=== PATIENT | female | born 1965 | race Two or more races ===

== ENCOUNTER 2025-02-20 14:22 | Observation (INO) ==
--- NOTE | 2025-02-20 14:22 | ED Physician Documentation ---
PD HPI FOCAL NEURO Stated complaint Stated Complaint: SLURRED SPEECH Chief complaint Chief Complaint: Neuro History obtained from History obtained from: Patient and EMS History of Present Illness Timing - onset: How many hours ago (Onset of notable weakness and trouble speaking at 130 today, approximately 1 hour prior to arrival. Some numbness in the right arm starting 10:00 this morning.) and Today Timing - details: Abrupt onset, Still present and Waxing and waning Weakness: Face, Arm, Leg and Right Numbness: Arm, Leg and Right Associated symptoms: Headache; No Nausea / vomiting, Seizure, Head injury or Fever Baseline status: positive A&OX3, ambulatory, indep (With some baseline weakness of the right arm and leg and very subtly on the face from a stroke 4 to 5 years ago.) Similar symptoms before: Diagnosis (CVA 4-5 years ago.) Recently seen: Not recently seen Meds/Allgy Home Medications Ambulatory Orders Medication Instructions Recorded Confirmed aspirin 81 mg capsule 81 mg PO DAILY 02/20/2502/09 atorvastatin 80 mg tablet (Lipitor) 80 mg PO DAILY 04/0402/20/25 gabapentin 100 mg capsule 100 mg PO BID 02/20/2502/20 losartan 50 mg tablet (Cozaar) 50 mg PO BID 02/20/25 1 04/22/24 metoprolol tartrate 50 mg tablet 50 mg PO BID 02/20/25 02/20/25 (Lopressor) potassium 02/20/25 Allergies Allergies Allergy/AdvReac Type Severity Reaction Status Date / Time No Known Drug Allergies Allergy Verified 02/20/25 14:53 PFSH Active Problems All Active Problems (Updated 02/20/25 @ 16:21 by Paolo Ibarra MD) Acute right-sided weakness (Acute) CVA (cerebral vascular accident) (Acute) Social History Social History Smoking Status: Unknown if ever smoked Do you feel safe in your home environment?: Yes History of physical, verbal, emotional, or financial abuse?: No Exam Exam Vital Signs: Vital Signs x48h Temp Pulse Resp BP Pulse Ox 02/20/25 15:43 61 20 151/65 H 98 02/20/25 15:37 58 L 17 139/65 H 98 02/20/25 15:11 68 27 H 167/77 H 100 02/20/25 14:16 36.7 C 71 18 155/98 H 92 Constitutional normal general appearance, distress noted (moderate) (anxious) and average body habitus HENMT head/scalp atraumatic Neck/C-Spine visual inspection normal, supple, no meningeal signs and no carotid bruits Lymph no lymphadenopathy noted Chest palpation of chest normal Respiratory normal respiratory effort and clear to auscultation bilaterally Cardiovascular normal heart rate noted, regular rhythm noted and no edema Gastrointestinal abdomen soft to palpation and nontender to palpation Extremities normal to palpation and no tenderness Neurology cranial nerve findings as noted: (mild right facial weakness) and no focal motor deficit noted Results Vitals Vitals: Vital Signs - 24 hr 02/20/25 14:16 02/20/25 15:11 02/20/25 15:37 Temperature 36.7 C Temperature Source Temporal Artery Scan Pulse Rate 71 68 58 L Respiratory Rate 18 27 H 17 Blood Pressure 155/98 H 167/77 H 139/65 H O2 Saturation 92 100 98 O2 Source Room air Room air Room air Pain Intensity 0 6 02/20/25 15:43 Temperature Temperature Source Pulse Rate 61 Respiratory Rate 20 Blood Pressure 151/65 H O2 Saturation 98 O2 Source Pain Intensity Oxygen O2 Source Room air EKG (time done) 1438: EKG releavant findings:: EKG personally interpreted by author of this note. Relevant findings are: Rate: Rate (enter#) (64) Rhythm: NSR [place]: Normal Intervals: Normal RI QRS: QRS normal Ischemia: Normal ST segments; No ST elevation c/w ischemia Labs Labs: Laboratory Tests 02/20/25 14:45 WBC 7.8 RBC 4.35 Hgb 12.4 Hct 37.3 MCV 85.7 MCH 28.5 MCHC 33.2 RDW 12.7 Plt Count 281 MPV 10.5 Neut # (Auto) 3.7 Lymph # (Auto) 3.4 [place] # (Auto) 0.5 Eos # (Auto) 0.1 Baso # (Auto) 0.1 Absolute Nucleated RBC 0.00 Nucleated RBC % 0.0 Sodium 139 Potassium 3.7 Chloride 105 Carbon Dioxide 24 Anion Gap 10.0 BUN 9 Creatinine 0.6 Estimated GFR (MDRD) 102 Glucose 109 H Calcium 9.3 Magnesium 2.4 H Total Bilirubin 0.5 AST 16 ALT 29 Alkaline Phosphatase 138 H Troponin I High Sens 11.4 Total Protein 7.2 Albumin 4.5 Globulin 2.7 Albumin/Globulin Ratio 1.7 Lipase 29 Rads (name of study) head CT: Relevant Findings:: Final report received and Discussed with rads Interpretation: EXAM: [id number] CT/HEADSP ([id number]) PROCEDURE: CT Head W/O Stroke Protocol INDICATIONS: ORTIZ and increased right weakness TECHNIQUE: Noncontrast angled axial sections acquired from the foramen magnum to the vertex, with coronal reformats. For radiation dose reduction, the following was used: automated exposure control, adjustment of mA and/or kV according to patient size. COMPARISON: Correlation is made with the accompanying imaging. FINDINGS: Image quality: Excellent. CSF spaces: Basal cisterns are patent. No extra-axial fluid collections. Ventricles are normal in size and shape. Brain: No midline shift. No intracranial mass effect or hemorrhage. [place]- white matter interface is normal. Skull and face: Calvarium and visualized facial bones are intact, without suspicious lesions. Sinuses: Visualized sinuses and mastoids are clear. IMPRESSION: No intracranial hemorrhage is seen. No acute intracranial pathology. If there is strong clinical concern for a stroke, please consider a dedicated brain MRI for further evaluation (assuming that there is no contraindication to MRI). Note: Case discussed by telephone with Dr. Ibarra at 2:38 p.m. pacific time on 02/20/2025. This study fulfills neurological imaging criteria for inclusion or exclusion of acute stroke therapies based on available published neurological imaging guidelines. Reviewed by: Velasquez Burton MD on 02/20/2025 1:38 PM [facility] head/neck angio: Relevant Findings:: Final report received and Discussed with rads Interpretation: EXAM: [id number] CT/HNA PROCEDURE: CT Angio Head/Neck INDICATIONS: ORTIZ, increased right weakness CONTRAST: 80ml omni 300 TECHNIQUE: After the administration of intravenous contrast, images were acquired from the aortic arch through the [place] of [place]. 3-dimensional cjcckgz-cwruxafuj-yydpolarsp (MIP) and volume rendering reformats were acquired of the central intracranial vasculature and neck separately. COMPARISON: Correlation is made with the accompanying imaging. FINDINGS: Image quality: Diagnostic. Cerebral CT Angiogram: Internal carotid arteries: No acute findings. Intracranial ICA are patent with no significant stenosis. No occlusion. No aneurysm. Anterior cerebral arteries: Unremarkable. No significant stenosis. No occlusion. No aneurysm. Middle cerebral arteries: Unremarkable. No significant stenosis. No occlusion. No aneurysm. Posterior cerebral arteries: Unremarkable. No significant stenosis. No occlusion. No aneurysm. Basilar artery: Unremarkable. No significant stenosis. No occlusion. No aneurysm. Vertebral arteries: Unremarkable as visualized. Dural venous sinuses: Unremarkable given phase of enhancement. Other: Arterial phase appearance of the brain parenchyma is unremarkable. Neck CT Angiogram: Internal carotid arteries: Unremarkable. No significant stenosis. No dissection or occlusion. Common carotid arteries: Unremarkable. No significant stenosis. No dissection or occlusion. External carotid arteries: Unremarkable. No occlusion. Vertebral arteries: Unremarkable. No significant stenosis. No dissection or occlusion. Aortic Arch and Mediastinum: Partially visualized aortic arch unremarkable without evidence of aneurysm. Origins of the great vessels unremarkable. Other: Arterial phase soft tissues of the neck and chest are unremarkable. Focal moderate disc space narrowing can be seen in the C6-C7 level. IMPRESSION: No significant intracranial arterial abnormality is seen. No hemodynamically significant stenosis can be seen within the arteries of the neck. Note: Case discussed by telephone with Dr. Ibarra at 2:38 p.m. pacific time on 02/20/2025. The estimate of stenosis included in the report of the imaging study was calculated using the NASCET method Reviewed by: Velasquez Burton MD on 02/20/2025 1:39 PM [facility] chest xray: Relevant Findings:: Final report received and EMP independent interpretation of test Interpretation: EXAM: [id number] XR/CXR1VW ([id number]) PROCEDURE: XR Chest 1V INDICATIONS: chest tightness TECHNIQUE: One view of the chest was acquired. COMPARISON: None. FINDINGS: Surgical changes and devices: None. Lungs and pleura: No pleural effusions or pneumothorax. No consolidation. Mediastinum: Mediastinal contours appear normal. Heart size is normal. Bones and chest wall: No suspicious bony lesions. Overlying soft tissues appear unremarkable. IMPRESSION: No acute cardiopulmonary process. Reviewed by: Demarco Little MD on 02/20/2025 4:28 PM PS PD Medical Decision Making ED course Complexity details: reviewed results (Concern for increasing her prior stroke symptoms from other metabolic causes or illness. No other obvious illness symptoms and other basic labs are okay. CT did not show any obvious bleeding or acute injury. CT angio did not show any large vessel occlusion.), re-evaluated patient (The patient states her symptoms were waxing and waning initially on presentation and have now resolved close to her baseline level of weakness on the right side. However she still states "I do not feel right". I feel it appropriate for her to be hospitalized for further stroke workup and eval.), considered differential (Increase in right sided weakness and trouble speaking and facial weakness and then area of prior stroke symptoms from 4 to 5 years ago. However notably increased today. No other illness symptoms recently.), d/w patient and d/w project consultant (Telestroke consulted - Refer to their report, in summary, the patient's arm numbness started about 10 AM and then increased weakness at 130 so the neurologist felt she was out of the window timeframe for TNK and did not have a large vessel occlusion. antiplatelet medication and further workup) ED course: Patient with prior stroke approximately 5 years ago with residual right sided mild weakness. She states she normally can still function with her right arm and ambulate. Some mild right facial weakness but normal chewing at [employer]. At 130 today which is 1 hour ago, she was talking and suddenly had difficulty speaking, had some headache and noted an increase in her right sided weakness. This concerned her and she also felt numbness on the right side which had occurred when she had her initial stroke but is not baseline for her. EMS was called and brought her here urgently. Discharge Plan Discharge Patient Disposition: ED Place in Observation Condition: Stable Clinical Impression: Acute right-sided weakness Interventions: ED Admission Assessment Last Done: 02/20/25 16:47 Vitals documented within 30 minutes of discharge?: Yes NIHSS Level of Consciousness Level of consciousness: (0) Alert, Keenly responsive LOC Questions: (0) Answers both Q's correct LOC Commands: (0) Performs both correctly Gaze Best Gaze: (0) Normal Visual Visual: (0) No loss Facial Palsy Facial Palsy: (1) Minor paralysis Motor Arms (both separate) Motor Arm (right): (1) Drift Motor Arm (left): (0) No drift Motor Legs (both separate) Motor Leg (right): (1) Drift Motor Leg (left): (0) No drift Limb Ataxia Limb Ataxia: (1) Present in 1 limb Sensory Sensory: (1) Pwpp-mf-uzflawyf loss Best Language Best Language: (0) No aphasia Dysarthria Dysarthria: (1) Ixea-kz-gghwvkgm dysarthria Extinction and Inattention (formally neg Extinction and inattention: (0) No abnormality Total Score/Results Total Score/Result: 6
--- NOTE | 2025-02-20 14:42 | CT Report ---
PROCEDURE: CT Head W/O Stroke Protocol INDICATIONS: ORTIZ and increased right weakness TECHNIQUE: Noncontrast angled axial sections acquired from the foramen magnum to the vertex, with coronal reformats. For radiation dose reduction, the following was used: automated exposure control, adjustment of mA and/or kV according to patient size. COMPARISON: Correlation is made with the accompanying imaging. FINDINGS: Image quality: Excellent. CSF spaces: Basal cisterns are patent. No extra-axial fluid collections. Ventricles are normal in size and shape. Brain: No midline shift. No intracranial mass effect or hemorrhage. [place]- white matter interface is normal. Skull and face: Calvarium and visualized facial bones are intact, without suspicious lesions. Sinuses: Visualized sinuses and mastoids are clear. IMPRESSION: No intracranial hemorrhage is seen. No acute intracranial pathology. If there is strong clinical concern for a stroke, please consider a dedicated brain MRI for further evaluation (assuming that there is no contraindication to MRI). Note: Case discussed by telephone with Dr. Ibarra at 2:38 p.m. pacific time on 02/20/2025. This study fulfills neurological imaging criteria for inclusion or exclusion of acute stroke therapies based on available published neurological imaging guidelines. Reviewed by: Velasquez Burton MD on 02/20/2025 1:[address] [facility] Approved by: Velasquez Burton MD on 02/20/2025 1:[address] [facility] Station ID: [id number]
--- NOTE | 2025-02-20 14:43 | CT Report ---
PROCEDURE: CT Angio Head/Neck INDICATIONS: ORTIZ, increased right weakness CONTRAST: 80ml omni 300 TECHNIQUE: After the administration of intravenous contrast, images were acquired from the aortic arch through the [place] of [place]. 3-dimensional tjqtzft-kxgtsepmc-rpoaejjcox (MIP) and volume rendering reformats were acquired of the central intracranial vasculature and neck separately. COMPARISON: Correlation is made with the accompanying imaging. FINDINGS: Image quality: Diagnostic. Cerebral CT Angiogram: Internal carotid arteries: No acute findings. Intracranial ICA are patent with no significant stenosis. No occlusion. No aneurysm. Anterior cerebral arteries: Unremarkable. No significant stenosis. No occlusion. No aneurysm. Middle cerebral arteries: Unremarkable. No significant stenosis. No occlusion. No aneurysm. Posterior cerebral arteries: Unremarkable. No significant stenosis. No occlusion. No aneurysm. Basilar artery: Unremarkable. No significant stenosis. No occlusion. No aneurysm. Vertebral arteries: Unremarkable as visualized. Dural venous sinuses: Unremarkable given phase of enhancement. Other: Arterial phase appearance of the brain parenchyma is unremarkable. Neck CT Angiogram: Internal carotid arteries: Unremarkable. No significant stenosis. No dissection or occlusion. Common carotid arteries: Unremarkable. No significant stenosis. No dissection or occlusion. External carotid arteries: Unremarkable. No occlusion. Vertebral arteries: Unremarkable. No significant stenosis. No dissection or occlusion. Aortic Arch and Mediastinum: Partially visualized aortic arch unremarkable without evidence of aneurysm. Origins of the great vessels unremarkable. Other: Arterial phase soft tissues of the neck and chest are unremarkable. Focal moderate disc space narrowing can be seen in the C6-C7 level. IMPRESSION: No significant intracranial arterial abnormality is seen. No hemodynamically significant stenosis can be seen within the arteries of the neck. Note: Case discussed by telephone with Dr. Ibarra at 2:38 p.m. pacific time on 02/20/2025. The estimate of stenosis included in the report of the imaging study was calculated using the NASCET method Reviewed by: Velasquez Burton MD on 02/20/2025 1:39 PM [facility] Approved by: Velasquez Burton MD on 02/20/2025 1:39 PM [facility] Station ID: [id number]
[2025-02-20 14:50] LABS: HCT - HEMATOCRIT 37.3 % (37.0-47.0); HGB - HEMOGLOBIN 12.4 g/dL (12.0-16.0); MEAN PLATELET VOLUME 10.5 fL (7.9-10.8); NRBC ABSOLUTE COUNT (AUTO) 0.00 x10^3/uL; NUCLEATED RED BLOOD CELLS AUTO 0.0 /100WBC; PLT - PLATELET COUNT 281 10^3/uL (130-450); RED CELL DISTRIBUTION WIDTH 12.7 % (12.0-15.0)
[2025-02-20] MEDS: SODIUM CHLORIDE 0.9% 1,000 ML IV STA (14:52)
[2025-02-20 15:09] LABS: ALT ALANINE AMINOTRANSFERASE 29.0 IU/L (10-60); AST ASPARTATE AMINOTRANSFERASE 16.0 IU/L (10-42); BUN - BLOOD UREA NITROGEN 9.0 mg/dL (6-20); CARBON DIOXIDE - CO2 24.0 mmol/L (21-32); CREATININE 0.6 mg/dL (0.6-1.3); GFR - MDRD 102.0 (>89)
[2025-02-20] MEDS: ASPIRIN CHEW 81 MG TABLET PO STA (16:03)
[2025-02-20] MEDS: CLOPIDOGREL 75 MG TABLET PO STA (16:03)
[2025-02-20] MEDS: KETOROLAC 15 MG/ML VIAL IVP STA (16:27)
--- NOTE | 2025-02-20 16:32 | XRAY Report ---
PROCEDURE: XR Chest 1V INDICATIONS: chest tightness TECHNIQUE: One view of the chest was acquired. COMPARISON: None. FINDINGS: Surgical changes and devices: None. Lungs and pleura: No pleural effusions or pneumothorax. No consolidation. Mediastinum: Mediastinal contours appear normal. Heart size is normal. Bones and chest wall: No suspicious bony lesions. Overlying soft tissues appear unremarkable. IMPRESSION: No acute cardiopulmonary process. Reviewed by: Demarco Little MD on 02/20/2025 4:28 PM PST Approved by: Demarco Little MD on 02/20/2025 4:28 PM PST Station ID: [id number]
[2025-02-20] MEDS ORDERED: SODIUM CHLORIDE FLUSH 0.9% 10 ML SYRINGE IVP PRN (17:00)
[2025-02-20] MEDS ORDERED: ONDANSETRON ODT 4 MG TABLET TL PRN (17:00)
[2025-02-20] MEDS ORDERED: ACETAMINOPHEN 325 MG TABLET PO PRN (17:00)
[2025-02-20] MEDS ORDERED: oxyCODONE 5 MG TABLET PO PRN (17:00)
--- NOTE | 2025-02-20 18:02 | HISTORY & PHYSICAL EXAMINATION ---
Chief Complaint Chief Complaint Chief Complaint: Right sided tingling History of Present Illness Admitted From Admitted From:: ED History Obtained From Records Reviewed: [facility] History obtained from: Patient, son, EMR, ED provider History of Present Illness HPI Comment/Other: Ms. Preston is a 59-year-old female with a past medical history notable for stroke in March 2020 of unclear etiology with residual right-sided deficits. She comes in with numbness and tingling in her right side as well as hypertension that she noted at home. She has had some progressive right-sided deficits similar to her last presentation which brought on concern for recurrent stroke. She tells me that her previous stroke happened in March 2020. She was working as a housekeeping aid at the time. She began having numbness and tingling in her right foot that gradually ascended up to her hip and throughout her right side of her body. She only started noting symptoms when she began having numbness and tingling in her right face which came with some attendant vertiginous symptoms. It was several hours before she presented to the ED with the help of her daughter. She lived in [facility] at the time. There she was diagnosed with an acute stroke. She says she was treated in the ICU for 2 weeks. She had flaccid paralysis to her right upper and lower extremity. She worked aggressively with therapy over the ensuing year and has gained a lot of her function back. She is able to ambulate. Today she noted some numbness and tingling in her right hand mostly and somewhat in her right foot. These paresthesias were very similar to her last stroke almost 5 years ago. She noted the time of her symptoms this morning her blood pressure was systolics of 190. She began then having some slight right facial droop, dysarthria, and weakness in her upper and lower extremities. Otherwise she said she had difficulty sleeping on the night prior to arrival. She took 2 gabapentin before going to bed last night. She slept the full night. In the ED, code stroke was called. Given that her symptoms had occurred over 4 hours from her presentation to the ED, she was not a TNK candidate. In addition, per the teleneurologist, her symptoms were already resolving which also was a contraindication. There was no LVO on CTA. Her labs are largely unremarkable. She denies any recent viral syndromes. Denies any fevers or chills. Denies any dyspnea, abdominal pain, nausea or vomiting. She has had some chest discomfort that is started here. She had a HS troponin drawn in the ED which was 11. She is full code. Meds/Allgy Home Medications Ambulatory Orders Medication Instructions Recorded Confirmed aspirin 81 mg capsule 81 mg PO DAILY 02/20/2502/09 atorvastatin 80 mg tablet (Lipitor) 80 mg PO DAILY 04/0402/20/25 gabapentin 100 mg capsule 100 mg PO BID 02/20/2502/20 losartan 50 mg tablet (Cozaar) 50 mg PO BID 02/20/25 1 04/22/24 metoprolol tartrate 50 mg tablet 50 mg PO BID 02/20/25 02/20/25 (Lopressor) potassium citrate 10 mEq (1,080 10 meq PO BID 02/20/25 02/20/25 mg) tablet,extended release Allergies Allergies Allergy/AdvReac Type Severity Reaction Status Date / Time HEBER Inhibitors Allergy Unknown Unknown Verified 02/20/25 18:24 PFSH Active Problems All Active Problems (Updated 02/20/25 @ 18:04 by Garry Davey DO) Essential hypertension (Acute) Acute right-sided weakness (Acute) CVA (cerebral vascular accident) (Acute) Social History Social History (Updated 02/20/25 @ 17:10 by Paolo Ibarra MD) Smoking Status: Unknown if ever smoked Do you feel safe in your home environment?: Yes History of physical, verbal, emotional, or financial abuse?: No Exam Exam Vital Signs: Vital Signs x48h Temp Pulse Pulse Resp BP BP Pulse Ox 02/20/25 17:02 37.1 C 58 L 20 149/68 H 96 02/20/25 16:28 61 150/65 H 95 02/20/25 15:43 61 20 151/65 H 98 02/20/25 15:37 58 L 17 139/65 H 98 02/20/25 15:11 68 27 H 167/77 H 100 02/20/25 14:16 36.7 C 71 18 155/98 H 92 GEN: No acute distress. Anxious appearing. Well-developed. HEENT: NC/AT, normal appearance of external ears and nose. Hearing baseline. Cardiac: Regular rate and rhythm, no murmurs. Generally euvolemic on exam. No visible JVP elevation. Pulm: Lungs CTA bilaterally, no cough, no wheezes. No adventitial lung sounds. Normal effort on room air. Abdomen: Soft, nontender, nondistended. No rebound or guarding Neuro: Face symmetric, speech is fluent. No word finding difficulties. Normal lexicon. CN II through XII intact. Strength 5/5 in the bilateral shoulder, elbow, wrist. Endocrinology Physician mildly reduced in the right. Strength 5/5 in the left leg at the hip, knee, ankle. Strength 4/5 in the right leg at the hip, knee, ankle. Sensation reduced on the R with parasthesias Normal finger to nose on the R and L Psych: Mood anxious. Normal affect. Conclusion/Plan Problem List (1) Acute right-sided weakness: (2) CVA (cerebral vascular accident): Plan: Patient with a prior history of acute CVA of unclear etiology with persistent right-sided deficits. Her initial insult was in 2019. She went through a year of rehab. She is now ambulatory but has some persistent weakness in her right upper and lower extremity. On the day of admission, she had increased numbness and tingling in her right upper and lower extremity. She had attendant hypertension. She had some dysarthria initially prior to arrival but this is resolved. Her symptoms very much mimicked her initial insult in 2019 which prompted her to seek care. Differential includes second stroke, TIA, recrudescence of prior symptoms, less likely seizure. Her EKG does not show any atrial fibrillation. She is not on DOAC. - Will get brain MRI, MRI is already taking her tonight - Permissive hypertension, will resume her antihypertensives if MRI negative - Defer echo until MRI back - Telemetry - Lipid panel, repeat metabolic panel a.m. - Every 4 hour neurochecks and vitals - Already got aspirin loading dose in the ED, Continue low-dose ASA - Was outside of the window for acute intervention with TNK - Continue patient's gabapentin (3) Essential hypertension: Plan: Patient is hypertensive. Has a history of chronic hypertension. If she is having recrudescence of her symptoms, hypertensive crisis may elicit this. Permissive hypertension until MRI is back, if no stroke then can resume blood pressure meds May need to dial up her home antihypertensives, she is reportedly allergic to an unknown antihypertensive. She is on a beta-winifred. Could try carvedilol. Suspect she may be allergic to calcium channel winifred though it is rare. 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 twice daily - Resume antihypertensives if no stroke on MRI o Will continue losartan o Consider starting on carvedilol for better alpha effect o Avoid CCB for c/f prior allergic reaction - BMP AM Lab Results 02/20/25 14:45 02/20/25 14:45
--- NOTE | 2025-02-20 18:27 | MRI Report ---
PROCEDURE: MRI Brain WO INDICATIONS: CVA TECHNIQUE: Multisequence MRI of the brain was performed without intravenous contrast. COMPARISON: CT head from the same date. FINDINGS: Image quality: Diagnostic. CSF Spaces: Basal cisterns are patent. No extra-axial fluid collections. Ventricles are normal in size and shape. Brain: No intracranial mass effect or hemorrhage. Age-related volume loss is seen. Mild periventricular and deep white matter chronic small vessel ischemic changes is seen. Heredia/white matter interface is normal. Brainstem appears normal. Diffusion-weighted images demonstrate no acute ischemic insult. No chronic ischemic insults. Normal intravascular flow voids are present. Skull and face: Calvarium has normal marrow signal. Orbits appear normal. Sinuses: Sinuses and mastoids are clear. IMPRESSION: 1. No acute infarction. No acute intracranial bleed or midline shift. 2. Age-related volume loss and mild white matter chronic small vessel ischemic changes. Reviewed by: Matt Landin MD on 02/20/2025 6:23 PM [facility] Approved by: Matt Landin MD on 02/20/2025 6:23 PM [facility] Station ID: [id number]
[2025-02-20] MEDS: oxyCODONE 5 MG TABLET PO PRN (18:43)
[2025-02-20] MEDS: SODIUM CHLORIDE FLUSH 0.9% 10 ML SYRINGE IVP SCH (18:44)
[2025-02-20] MEDS: GABAPENTIN 100 MG CAPSULE PO SCH (20:37)
[2025-02-20] MEDS: LOSARTAN 50 MG TABLET PO SCH (20:38)
[2025-02-20] MEDS: ONDANSETRON 4 MG/2 ML VIAL IVP PRN (21:41)
[2025-02-21 05:44] LABS: HCT - HEMATOCRIT 35.7 % (37.0-47.0); HGB - HEMOGLOBIN 11.7 g/dL (12.0-16.0); MEAN PLATELET VOLUME 11.4 fL (7.9-10.8); NRBC ABSOLUTE COUNT (AUTO) 0.00 x10^3/uL; NUCLEATED RED BLOOD CELLS AUTO 0.0 /100WBC; PLT - PLATELET COUNT 256 10^3/uL (130-450); RED CELL DISTRIBUTION WIDTH 12.8 % (12.0-15.0)
[2025-02-21 05:59] LABS: BUN - BLOOD UREA NITROGEN 9 mg/dL (6-20); CARBON DIOXIDE - CO2 26 mmol/L (21-32); CHOL/HDL RATIO 2.8 (<4.4); CREATININE 0.6 mg/dL (0.6-1.3); GFR - MDRD 102 (>89); LDL/HDL RATIO 1.4 (<4.4); VLDL CHOLESTEROL 17 mg/dL
--- NOTE | 2025-02-21 07:08 | Discharge Summary ---
"Discharge Summary Admit Date: 02/20/25 Discharge Date: 02/21/25 Discharging Provider: Garry Davey Primary Care Provider: None Code Status: Attempt Resuscitation Discharge Facility Name: Home DIAGNOSES Discharge Diagnoses with Status of Each Condition: ## Right sided weakness ## Stroke recrudescence Patient was admitted with new onset right-sided weakness in the setting of high blood pressure at home. She was normotensive through most this hospitalization. Her symptoms resolved relatively quickly in the ER. She had some dysarthria initially on arrival, this is resolved by the time she was admitted. She had resolution of her right-sided upper and lower extremity weakness and some mild paresthesias on the time of admission. She had an MRI which was negative for any acute infarct. She has remained normotensive. Her LDL is 55. Her blood sugars have remained controlled without any glycemic control agents. She has been monitored on telemetry without any abnormal rhythms. Given that the distribution of her new symptoms were identical to her previous stroke from 2019, this is most likely recrudescence of her stroke in the setting of high blood pressure. The timeline of improvement is also suggestive of this. Less likely TIA. Less likely failure of aspirin for this reason and not starting her on DAPT and transitioning to Plavix. - Blood pressure management as below - Continue on ASA and statin - Needs rereferral to outpatient PT when she establishes with PCP - Needs a referral to neurology ## Hypertension, stable, chronic Patient with a history of hypertension. She was hypertensive with systolics in the 190s when she was experiencing her symptoms initially at home. She does not think she usually runs that high. Home medicines include losartan 50 mg p.o. twice daily and metoprolol tartrate 50 mg twice daily. Given her a blood pressure log, discussed extensively bring this to her next appointment - Continue losartan 50 mg p.o. twice daily - Transition to metoprolol succinate 100 mg daily ## Troponin increase Patient had some chest tightness that she reported in the ED. Her troponin did increase and peaked at 24 on high-sensitivity troponin. Her symptoms have resolved. This likely demand ischemia in setting of her high blood pressure. BP has been controlled as above. - On ASA and statin as above - Beta-winifred as above - Recommend cardiology referral at primary care for ischemic evaluation HPI History of Present Illness: Ms. Preston is a 59-year-old female with a past medical history notable for stroke in March 2020 of unclear etiology with residual right-sided deficits. She comes in with numbness and tingling in her right side as well as hypertension that she noted at home. She has had some progressive right-sided deficits similar to her last presentation which brought on concern for recurrent stroke. She tells me that her previous stroke happened in March 2020. She was working as a warehouse team member at the time. She began having numbness and tingling in her right foot that gradually ascended up to her hip and throughout her right side of her body. She only started noting symptoms when she began having numbness and tingling in her right face which came with some attendant vertiginous symptoms. It was several hours before she presented to the ED with the help of her daughter. She lived in [facility] at the time. There she was diagnosed with an acute stroke. She says she was treated in the ICU for 2 weeks. She had flaccid paralysis to her right upper and lower extremity. She worked aggressively with therapy over the ensuing year and has gained a lot of her function back. She is able to ambulate. Today she noted some numbness and tingling in her right hand mostly and somewhat in her right foot. These paresthesias were very similar to her last stroke almost 5 years ago. She noted the time of her symptoms this morning her blood pressure was systolics of 190. She began then having some slight right facial droop, dysarthria, and weakness in her upper and lower extremities. Otherwise she said she had difficulty sleeping on the night prior to arrival. She took 2 gabapentin before going to bed last night. She slept the full night. In the ED, code stroke was called. Given that her symptoms had occurred over 4 hours from her presentation to the ED, she was not a TNK candidate. In addition, per the teleneurologist, her symptoms were already resolving which also was a contraindication. There was no LVO on CTA. Her labs are largely unremarkable. She denies any recent viral syndromes. Denies any fevers or chills. Denies any dyspnea, abdominal pain, nausea or vomiting. She has had some chest discomfort that is started here. She had a HS troponin drawn in the ED which was 11. She is full code. CONSULTS | PROCEDURES Consultations: Telestroke in the ED Procedures: MRI, CTA, CTH 02/20 HOSPITAL COURSE Hospital Course: Ms. Preston is a pleasant 59-year-old female with a past medical history notable for stroke in 2020. She has some residual right-sided deficits that have improved significantly after extensive rehabilitation following her initial insult. She comes in with recurring symptoms of right-sided weakness, sensorium changes, with dysarthria. She feels like her primary symptom was paresthesias. She was able to ambulate. Her symptoms were very similar to her initial stroke from 2019. She was admitted for stroke workup. She had an MRI which did not reveal an acute infarct. She was monitored on telemetry without any arrhythmias. Her lipid profile is reassuring. LDL less than 70. Her symptoms have effectively resolved and she is back to her baseline. She worked with PT, who are recommending that she continue outpatient PT. She will need a referral from her primary care provider. Case management is working to set her up with a PCP. Given that her new symptoms have completely resolved and she is back to her baseline state, and given that this new event mimicked her initial infarct, it is most suspicious for recrudescence in the setting of hypertension. She was hypertensive up to 190s systolic when this event occurred. She normally has well-controlled blood pressure. She is unclear on what may have triggered her hypertensive episode. She is on metoprolol tartrate twice daily at baseline which is not ideal. I transitioned her to metoprolol succinate prior to discharge and prescribed this to the [facility] in [place] at her request. I have given her a blood pressure log and encouraged her to keep track of her blood pressures to bring to her next PCP appointment. Patient was seen and evaluated on the day of discharge. She is feeling well and back to her baseline. She has been cleared for discharge to a safe environment by PT. She was discharged in stable condition. ALLERGIES Allergies Allergy/AdvReac Type Severity Reaction Status Date / Time HEBER Inhibitors Allergy Unknown Unknown Verified 02/20/25 18:24 MEDICATIONS Ambulatory Orders Medication Instructions Recorded Confirmed aspirin 81 mg capsule 81 mg PO DAILY 02/20/2502/09 atorvastatin 80 mg tablet (Lipitor) 80 mg PO DAILY 04/0402/20/25 gabapentin 100 mg capsule 200 mg PO HS PRN pain 02/21/25 losartan 50 mg tablet (Cozaar) 50 mg PO BID 02/20/25 1 1/12/25 potassium citrate 10 mEq (1,080 10 meq PO BID 02/20/25 02/20/25 mg) tablet,extended release metoprolol succinate 100 mg 100 mg PO DAILY #30 tabs 1 04/23/24 tablet,extended release 24 hr PHYSICAL EXAM AT DISCHARGE Vital Signs: Vital Signs x48h Temp Pulse Resp BP Pulse Ox 02/21/25 13:10 36.6 C 76 127/64 96 02/21/25 13:00 37.1 C 69 140/60 H 95 02/21/25 12:00 37.1 C 70 18 143/57 H 95 LABS 02/21/25 05:00 02/21/25 05:00 FOLLOW UP Follow Up: Patient needs to establish with PCP in the community, follow-up within the next 1 to 2 weeks for ongoing blood pressure control TIME SPENT Time Spent in Discharge (Minutes): 40 Discharge Plan Discharge Patient Disposition: Home, Self Care Condition: Stable Medically Cleared Date:: 02/21/25 Prescriptions: New metoprolol succinate 100 mg tablet extended release 24 hr 100 mg PO DAILY Qty: 30 0RF Continued atorvastatin [Lipitor] 80 mg tablet 80 mg PO DAILY losartan [Cozaar] 50 mg tablet 50 mg PO BID aspirin 81 mg capsule 81 mg PO DAILY gabapentin 100 mg capsule 200 mg PO HS PRN (Reason: pain) potassium citrate 10 mEq (1,080 mg) tablet extended release 10 meq PO BID Discontinued metoprolol tartrate [Lopressor] 50 mg tablet 50 mg PO BID Diet: Regular Interventions: Belongings Inventory Last Done: 02/20/25 18:04 Discharge Last Done: 02/21/25 14:14 Discharge Checklist - Nursing Last Done: 02/21/25 14:15 Discharge Vital Signs (30 Minutes) Last Done: 02/21/25 13:10 Health Concerns: Your symptoms are best described by stroke recrudescence which is a temporary return of old stroke symptoms that had previously improved or gone away.These symptomssuch as weakness, numbness, or trouble speakingcome back suddenly but are usually milder than the original stroke and tend to resolve within hours to days, especially after the underlying trigger (like high blood pressure, infection, or stress) is treated. Importantly,stroke recrudescence is not a new stroke. It is a flare-up of previous stroke-related problems, not caused by new brain damage or bleeding. Brain scans during these episodes do not show new injury, only the old stroke area.[1]Recognizing this helps distinguish recrudescence from a new stroke or other conditions that mimic stroke symptoms. You should make sure you get referrals from your primary care to see a cutter barrel drum, neurologist and continue outpatient physical therapy. Blood Pressure Goals - Aim for a blood pressure less than 130/80 mm Hg. Take your blood pressure medicine every day, even if you feel well. - You are being started on metoprolol succinate, this replaces your previous metoprolol tartrate - Please keep a log of your blood pressures to bring in to your primary care doctor Lifestyle Changes - Eat a healthy diet, such as the Mediterranean or DASH diet, which is low in salt, fat, and processed foods. - Be active: Try to get at least 10 minutes of moderate exercise four times a week, or 20 minutes of vigorous exercise twice a week. Even short walks help. - Lose weight if you are overweight. This helps lower blood pressure and reduces stroke risk. Other Health Checks - Keep cholesterol and blood sugar under control. Take medicines for these if prescribed. - Follow up with your doctor for regular check-ups and blood pressure checks. Know the Signs of Stroke - Call 911 if you have sudden weakness, numbness, trouble speaking, vision changes, or severe headache. Follow-Up - Schedule and keep all follow-up appointments. Bring a list of your medicines and any questions you have. Remember: Controlling your blood pressure and making healthy choices can help prevent another stroke. If you have any questions or concerns, contact your healthcare team. Print Language: Pakistani Patient Instructions: Metoprolol extended-release tablets, TIA Dc Stand Alone Forms: PCP List Vitals documented within 30 minutes of discharge?: Yes (Yes)"
[2025-02-21 07:23] LABS: ALT ALANINE AMINOTRANSFERASE 24 IU/L (10-60); AST ASPARTATE AMINOTRANSFERASE 15 IU/L (10-42)
[2025-02-21] MEDS: ATORVASTATIN 40 MG TABLET PO SCH (08:50)
[2025-02-21] MEDS: CLOPIDOGREL 75 MG TABLET PO SCH (08:50)
[2025-02-21] MEDS: ASPIRIN EC 81 MG TABLET PO SCH (08:51)
--- NOTE | 2025-02-21 08:59 | PHARMACY PROGRESS NOTE ---
Best Possible Medication History Admit Date and Time: 02/20/25 1619 Home Medications Medication Instructions Recorded Confirmed Type aspirin 81 mg capsule 81 mg PO DAILY 02/20/2502/09 History atorvastatin 80 mg tablet (Lipitor) 80 mg PO DAILY 04/0402/20/25 History gabapentin 100 mg capsule 200 mg PO HS PRN pain 02/21/25 History losartan 50 mg tablet (Cozaar) 50 mg PO BID 02/20/25 1 04/22/24 History metoprolol tartrate 50 mg tablet 50 mg PO BID 02/20/25 02/20/25 History (Lopressor) potassium citrate 10 mEq (1,080 10 meq PO BID 02/20/25 02/20/25 History mg) tablet,extended release Processed by: Pharmacy Medications reviewed in ED?: Yes Medication History completed: Yes Patient Interview: Pt interview ONLY source [facility] Statement: As the person ultimately responsible for medication therapy, providers are able to order a medication from an existing home medication list in [facility] via the "Reconcile Routine" prior to Confirmation of that medication by operations support coordinator. Such practice is discouraged except when the physician, in their clinical judgment, deems that a medical need exists for a medication without regard to pr evious use.
--- NOTE | 2025-02-21 13:48 | PT Plan of Care ---
PT Plan of Care Physical Therapy Plan of Care: Diagnosis Diagnosis stroke r/o Referring Provider Garry Davey Patient Status Observation Chief Complaint Chief Complaint HTN, increased R sided symptoms Onset of Chief Complaint [employer] Medical History (Updated 02/21/25 @ 12:31 by Garry Davey, DO) Hyperlipidemia Balance/ Functional Results Sitting Balance Good Standing Balance Fair Tinetti Composite Score ( 20 Balance + Gait) Tinetti Assessment Moderate Fall Risk Interpretation Assessment Assessment Pt is a pleasant 59yo F referred for PT eval d/t increased R sided weakness. Admitted for stroke r/o d/t elevated BP, slurred speech, and increased R sided symptoms. MRI negative for acute infarct and symptoms largely resolved now. PMH includes CVA with R sided deficits approx 5 yrs ago, please see medical record for further hx. Cleared for eval by hospitalist. Upon PT eval, pt sleeping but easily roused and agrees to participate. Pt's son in room throughout session. RUE/RLE deficits slightly worse than baseline per pt report. RUE flexor tone with limited grasp, MMT grossly 2-/5. RLE ankle PF/DF absent, R knee and hip grossly 3/5. Mild RLE tone. Transfers Niko overall, benefits from CGA for pivot and short distance ambulation. Completes 4x5 steps with LUE HR use and step to pattern. Gait overall with AFO RLE, no AD. Step to pattern with mild RLE circumduction, absent push off but adequate toe clearance. PT provided education regarding home safety and rehab potential. Advised to perform any high risk activities like showering and stair climbing with family nearby for first couple of times to reduce fall risk. Overall moderate fall risk per Tinetti score of 20/28. Pt will benefit from continued PT to improve balance, reaction times, and progress gait training. Despite above deficits, pt is near baseline and appropriate for dc home. PT rec dc home with increased CG support and OPPT/OT. Additionally, recommended follow up with neurologist to establish care in [place] and to discuss vivistim candidacy. Goals Improve pivot transfer ability Modified Independent to: Improve gait ability to: SBA PT Plan of Care Frequency 1-2x/day Duration Until goals are met Discharge Recommendations Discharge Location Previous Living Situation Support/Services Needed Outpt. P.T. Transport Needs at Discharge Personal vehicle
[2025-02-21 14:15] VITALS: BP 127/64; TEMP 97.9; O2SAT 96
== END 2025-02-21 13:50 | disposition home or self-care (01) ==
LOC: EDBD → ED 14:22 → MS3 14:22
PROVIDERS: ADMIT Student in an Organized Health Care Education/Training Program; ATTEND Student in an Organized Health Care Education/Training Program
DX: I10 Essential (primary) hypertension; R20.0 Anesthesia of skin; R79.89 Other specified abnormal findings of blood chemistry; Z79.899 Other long term (current) drug therapy; R07.89 Other chest pain; R47.1 Dysarthria and anarthria; R47.81 Slurred speech; I69.351 Hemiplegia and hemiparesis following cerebral infarction affecting right dominant side; R29.810 Facial weakness; R20.2 Paresthesia of skin; Z79.82 Long term (current) use of aspirin